=== PATIENT | female | born 1975 | race Caucasian/White ===

== ENCOUNTER 2020-09-05 21:59 | Emergency (ER) | payer OTHER, SELFPAY ==
[2020-09-05 22:05] VITALS: BP 130/86; PULSE 74; RESP 20; TEMP 36.6; O2SAT 100; BMI 41.5
--- NOTE | 2020-09-05 22:18 | ED_ITS ---
HPI - Dizziness General: Chief Complaint: Dizziness Stated Complaint: PELVIC PAIN, DIZZINESS Time Seen by Provider: 09/05/20 22:12 History of Present Illness: HPI Narrative: Patient complains about bilateral flank pain worse on left than right and abdominal pain. Denies any vaginal discharge or bleeding. Denies any urinary tract type symptoms. Also has dizziness which she has a chronic history of dizziness when she is sick also. Says she feels lightheaded when she stands up says she is taking fluids in. MD elicited complaint: dizziness, lightheadedness and other (Bilateral flank pain) Onset (ago): day(s) Timing: gradual onset Severity: mild History of similar symptoms: Yes Exacerbating factors: nothing Relieving factors: nothing Associated symptoms: Reports no associated symptoms; Denies chest pain, chills, headache(s), nausea, nasal congestion or vomiting Associated neuro symptoms: Reports no associated symptoms Review of Systems Const: Denies: fever(s), chills or body aches Eyes: Denies: change in vision or blurry vision ENMT: Denies: throat pain or nasal congestion Card: Denies: chest pain or dyspnea on exertion Resp: Denies: dyspnea, productive cough or non-productive cough GI: Reports: abdominal pain; Denies: nausea or vomiting : Reports: flank pain Musc: Denies: extremity pain Skin/Breast: Denies: rash Neuro: Reports: dizziness; Denies: headache(s) Psych: Denies: anxiety or depression David/Lymph: Denies: easy bruising Physical Exam Const: COMMON NORMALS: no acute distress, average body habitus and patient oriented x3 HENMT: COMMON NORMALS: normocephalic HEAD & SCALP: normal to inspection and normocephalic FACE & SINUS: normal facial exam Eye: COMMON NORMALS: conjunctivae normal GENERAL EYE: appearance normal, both eyes and all related structures CONJUNCTIVA: Yes conjunctivae normal Neck/C-Spine: COMMON NORMALS: no JVD Chest: COMMONS NORMALS: normal inspection of the chest Resp: COMMON NORMALS: normal respiratory effort and clear to auscultation bilaterally AUSCULTATION: clear to auscultation bilaterally Cardio: COMMON NORMALS: no JVD, regular rate and regular rhythm RATE: regular rate RHYTHM: regular rhythm GI: COMMON NORMALS: Normal to inspection, nondistended, normoactive bowel sounds present PALPATION: Yes Tenderness to palpation present (GI) Details: LLQ and RLQ : BLADDER/KIDNEY EXAM: Yes CVA tenderness on the right and on the left (Worse on left) Back/Pelvis: GENERAL BACK: Yes CVA tenderness Extremity: COMMON NORMALS: normal to inspection and full ROM Neuro: COMMON NORMALS: patient oriented x3 Course Vital Signs: Vital signs: Vital Signs Temperature 97.8 F 09/05/20 22:05 Pulse Rate 74 09/05/20 22:05 Respiratory Rate 20 H 09/05/20 22:05 Blood Pressure 130/86 09/05/20 22:05 Pulse Oximetry 100 09/05/20 22:05 Coding Level of Care Code ED [employer] for Ligia Winston
[2020-09-05] MEDS: sodium chloride 0.9% 1,000 ML 999 ML IV (22:27)
[2020-09-05 22:33] VITALS: BP 135/83
[2020-09-05 22:34] LABS: Add Urine Microscopic? NO
[2020-09-05 22:36] LABS: Basophils # 0.1 10^3/uL (0.0-0.1); Basophils % 0.6 %; Eosinophils # 0.1 10^3/uL (0.0-0.8); Eosinophils % 0.7 %; Hematocrit 32.9 % (37.0-47.0); Hemoglobin 8.7 g/dL (11.5-15.3); Lymphocytes # 3.2 10^3/uL (0.8-4.8); Lymphocytes % 34.1 %; Mean Corpuscular HGB Conc 26.4 g/dL (30.0-36.0); Mean Corpuscular Hemoglobin 19.6 pg (28.0-34.0); Mean Corpuscular Volume 74.1 fL (81-99); Mean Platelet Volume 11.7 fL (7.4-10.4); Monocytes # 0.7 10^3/uL (0.2-0.9); Monocytes % 7.5 %; Neutrophils # 5.32 10^3/uL (1.8-7.7); Neutrophils % 56.8 %; Nucleated Red Blood Cells % 0 %; Platelet Count 208 10^3/cmm (130-400); Red Blood Count 4.44 10^6/uL (4.1-5.3); Red Cell Distribution Width 17.2 % (12.1-15.1); White Blood Count 9.4 10^3/uL (4.0-10.0)
[2020-09-05 22:46] LABS: Bilirubin Urine Neg (Negative); Blood Urine Neg (Negative); Glucose Urine UA Norm (Normal); HCG Qualitative Urine. Negative (Negative); Ketones Urine Negative (Negative); Leukocyte Esterase Urine Negative (Negative); Nitrate Urine Negative (Negative); Protein Urine Neg (Negative); Specific Gravity, Urine 1.005 (1.005-1.030); Urine Appearance Clear (CLEAR); Urine Color Straw (Yellow); Urobilinogen Urine 1 mg/dL (Negative); pH Urine 6.5 (5-7)
--- NOTE | 2020-09-05 22:52 | USR_ITS ---
NOTE: Report was unsigned for reason: Order was edited. Original Signature date and time was: 09/06/20 0059 PROCEDURE INFORMATION: Exam: US Pelvis Complete, Transabdominal and US Pelvis, Transvaginal Exam date and time: 09/06/2020 12:19 AM Age: 44 years old Clinical indication: Pelvic pain; Prior surgery; Surgery type: Tubal TECHNIQUE: Imaging protocol: Real-time transabdominal and transvaginal pelvic ultrasound (complete) with image documentation. Transvaginal imaging was used for better evaluation of the endometrium, adnexa, and/or cervix. COMPARISON: US Pelvis Female [id number] 03/06/2018 10:55 AM FINDINGS: The uterus measures 9-10 cm in length. There is no visible focal myometrial mass. There is no intrauterine fluid. Endometrial thickness is about 13 mm. There is no free pelvic fluid. The right ovary measures 30 x 24 x 28 mm, estimated volume 10.4 cc. Small cyst involving the right ovary, measuring about 26 x 24 mm. As clinically directed, follow up in one to three months may be useful to evaluate for resolution of a physiologic cyst, and to guard against a persistent/enlarging lesion/neoplasm. Blood flow detected in the right ovary. The left ovary is not visualized at this time, possibly obscured by bowel gas. Adnexal regions otherwise appear essentially unremarkable on the provided images. The urinary bladder was not completely evaluated/imaged at this time. Endovaginal scanning provided better visualization/evaluation of the endometrium and ovaries/adnexal regions, as discussed above. [facility] with transvaginal IMPRESSION: 1. Small right ovarian cyst, see above discussion. 2. Endometrial thickness is upper range of normal. 3. Other details discussed above.
[2020-09-05 22:57] LABS: Alanine Aminotransferase 7 U/L (0-33); Albumin Level 3.7 g/dL (3.5-5.2); Alkaline Phosphatase 101 IU/L (35-105); Anion Gap 13.1 (5-19); Aspartate Amino Transferase 14 U/L (0-32); Blood Urea Nitrogen 10 mg/dL (6-20); Calcium 8.6 mg/dL (8.5-10.5); Carbon Dioxide 26 mmol/L (22-29); Chloride 111 mmol/L (98-107); Globulin 2.7 g/dL (1.3-4.6); Glomerular Filtration Rate 107.6 mL/min (90-130); Glucose 91 mg/dL (65-115); Lipase 46 U/L (13-60); Osmolality Calculated 301 mOsm/kg (285-295); Potassium 4.1 mmol/L (3.5-5.1); Sodium 146 mmol/L (136-145); Total Bilirubin 0.2 mg/dL (0.15-1.2); Total Protein 6.4 g/dL (6.6-8.7)
[2020-09-06 00:44] VITALS: BP 125/90; PULSE 82; RESP 16; O2SAT 99
[2020-09-06] MEDS: HYDROcodone-acetaminophen 7.5-325 mg Tablet 1 TAB PO (00:45)
[2020-09-06 01:19] VITALS: BP 110/81; PULSE 78; RESP 18; O2SAT 98
--- NOTE | 2020-09-06 08:39 | DCPLANNER ---
sales communications manager had message to schedule a follow up appointment for patient with women's health. sales communications manager called [facility], spoke with Xochitl, gave clinic patients information. sales communications manager was told that patients information would be printed and reviewed. Clinic will call patient with appointment information.
--- NOTE | 2020-09-07 10:54 | DCPLANNER ---
Patient has a follow up appointment scheduled for Tuesday, October 08, [address] at [address] Leach. Clinic will call patient with appointment information.
--- NOTE | 2020-10-19 08:51 | DCPLANNER ---
Patient had a follow up appointment scheduled for 10.08.20 with [facility] - appointment was cancelled.
== END 2020-09-06 01:20 | disposition home or self-care (01) ==
PROVIDERS: Emergency Provider Nurse Practitioner Family; PCP Family Medicine
DX: R42 Dizziness and giddiness (principal); R10.2 Pelvic and perineal pain
CPT/HCPCS: 12345; 76830; 76856; 80053; 81003; 81025; 83690; 85025; 96360; 99283; J7030